=== PATIENT | male | born 1985 | race Caucasian/White ===

== ENCOUNTER 2024-06-21 19:16 | Emergency (ER) | payer SELFPAY ==
[~2024-06-21] VITALS: Ht 167.6 cm; Wt 90.0 kg
[2024-06-21 19:26] VITALS: BP 120/58; PULSE 99; RESP 16; TEMP 98.2; O2SAT 98
== END 2024-06-21 22:48 | disposition home or self-care (01) ==
LOC: ER 19:16
DX: S00.03XA Contusion of scalp, initial encounter (principal); F10.129 Alcohol abuse with intoxication, unspecified; W01.0XXA Fall on same level from slipping, tripping and stumbling without subsequent striking against object, initial encounter; Y93.89 Activity, other specified; Y92.89 Other specified places as the place of occurrence of the external cause; Y99.8 Other external cause status; Y90.9 Presence of alcohol in blood, level not specified
CPT/HCPCS: 99284